=== PATIENT | male | born 1965 | race Caucasian/White ===

== ENCOUNTER 2017-03-17 19:53 | Inpatient (IN) | payer OTHER ==
[~2017-03-17] VITALS: Ht 170.2 cm; Wt 95.0 kg
[~2017-03-17 19:53] MED LIST: RAMIPRIL2.5 MG
[2017-03-17 21:15] LABS: microscopic required? NO
[2017-03-17 21:16] LABS: CALCIUM 8.2 mg/dL (8.5-10.1); CARBON DIOXIDE 22.3 mmol/L (21-32); CHLORIDE SERUM 100 mmol/L (98-107); GFR1 > 60 mL/min; GLUCOSE SERUM 133 mg/dL (74-106); POTASSIUM SERUM 3.9 mmol/L (3.5-5.1); SODIUM SERUM 138 mmol/L (136-145)
[2017-03-17 21:20] LABS: ALKALINE PHOSPHATASE 878 U/L (46-116); ALT/SGPT 54 U/L (16-63); AST/SGOT 67 U/L (15-37); BILIRUBIN TOTAL 1.3 mg/dL (0.20-1.00)
[2017-03-17 21:21] LABS: ALBUMIN 1.8 g/dL (3.4-5.0); TOTAL PROTEIN, SERUM 5.5 g/dL (6.4-8.2)
[2017-03-17 21:22] LABS: UA SPECIFIC GRAVITY 1.025 (1.005-1.035); urine erythrocyte NEGATIVE (NEGATIVE)
[2017-03-17 21:26] LABS: PLATELET COUNT 53 x10^3mcL (130-400); RED CELL DISTRIBUTION WIDTH 17.5 % (11.5-14.5)
[2017-03-17 21:31] LABS: CK-MB < 0.5 ng/mL (0-3.6); CREATINE KINASE 22 U/L (39-308)
[2017-03-17 21:53] LABS: BAND NEUTROPHIL 7 % (0-10); BASOPHIL 0 % (0-2); METAMYELOCTE 3 % (0-2); MONOCYTE 6 % (0-7); SEGMENTED NEUTROPHILS 80 % (37-75)
[2017-03-17 21:54] LABS: rbc morphology (normal/abnorm) ABNORMAL (NORMAL)
[2017-03-17 21:57] LABS: schistocyte (helmet cell) 1+; target cell (codocyte) 2+; tear drop cell (dacryocyte) 1+
[2017-03-17] MEDS ORDERED: INDOMETHACIN25 MG PO (22:12)
[2017-03-17] MEDS ORDERED: TRIUMEQ1 TAB PO (22:12)
[2017-03-17] MEDS ORDERED: BIAXIN FILMTAB500 MG PO (22:13)
[2017-03-17] MEDS ORDERED: FUROSEMIDE20 MG PO (22:13)
[2017-03-17] MEDS ORDERED: METOPROLOL SUCC25 M2 PO (22:16)
[2017-03-18] VITALS (19 sets, daily range): BP systolic 20–124; BP diastolic 49–78
[2017-03-18 00:26] LABS: CHOLESTEROL 301 mg/dL (<200); CHOLESTEROL/HDL RATIO 60.2; HDL CHOLESTEROL 5 mg/dL (40-60); MAGNESIUM 2.4 mg/dL (1.8-2.4); PHOSPHOROUS 3.8 mg/dL (2.5-4.9); TRIGLYCERIDES 525 mg/dL (<150)
[2017-03-18 00:30] LABS: FREE T4 1.29 ng/dL (0.76-1.46); FREE THYROXINE INDEX 2.2 ug/dL (1.4-4.5); T4(THYROXINE) 6.4 ug/dL (4.7-13.3)
[2017-03-18 01:40] LABS: T3 TOTAL 0.84 ng/mL
[2017-03-18 05:10] LABS: PLATELET COUNT 38 x10^3mcL (130-400); RED CELL DISTRIBUTION WIDTH 17.7 % (11.5-14.5)
[2017-03-18 05:20] LABS: ALKALINE PHOSPHATASE 829 U/L (46-116); ALT/SGPT 51 U/L (16-63); AST/SGOT 57 U/L (15-37); BILIRUBIN TOTAL 1.1 mg/dL (0.20-1.00); CALCIUM 7.7 mg/dL (8.5-10.1); CARBON DIOXIDE 20.5 mmol/L (21-32); CHLORIDE SERUM 104 mmol/L (98-107); CREATININE SERUM 0.9 mg/dL (0.7-1.3); GFR1 > 60 mL/min; GLUCOSE SERUM 149 mg/dL (74-106); SODIUM SERUM 139 mmol/L (136-145)
[2017-03-18 05:42] LABS: BAND NEUTROPHIL 3 % (0-10); METAMYELOCTE 1 % (0-2); MONOCYTE 8 % (0-7); SEGMENTED NEUTROPHILS 80 % (37-75)
[2017-03-18 05:47] LABS: ovalocyte/elliptocyte 1+; rbc morphology (normal/abnorm) ABNORMAL (NORMAL)
[2017-03-18 05:52] LABS: ALBUMIN 1.8 g/dL (3.4-5.0); TOTAL PROTEIN, SERUM 5.4 g/dL (6.4-8.2)
[2017-03-18 14:49] LABS: AMPHETAMINE QUAL UR NONE DETECTED (NEG <=1000)
[2017-03-19] VITALS (18 sets, daily range): BP systolic 92–116; BP diastolic 54–77; Ht 170.2 cm; Wt 95.0 kg
[2017-03-19 06:22] LABS: CALCIUM 7.9 mg/dL (8.5-10.1); CHLORIDE SERUM 102 mmol/L (98-107); CREATININE SERUM 0.8 mg/dL (0.7-1.3); GFR1 > 60 mL/min; GLUCOSE SERUM 198 mg/dL (74-106); MAGNESIUM 2.5 mg/dL (1.8-2.4); PHOSPHOROUS 3.4 mg/dL (2.5-4.9); POTASSIUM SERUM 4.1 mmol/L (3.5-5.1); SODIUM SERUM 151 mmol/L (136-145)
[2017-03-19 06:34] LABS: RED CELL DISTRIBUTION WIDTH 17.7 % (11.5-14.5)
[2017-03-19 06:35] LABS: PLATELET COUNT 44 x10^3mcL (130-400)
[2017-03-19 07:36] LABS: BAND NEUTROPHIL 4 % (0-10); BASOPHIL 0 % (0-2); METAMYELOCTE 1 % (0-2); MONOCYTE 8 % (0-7); SEGMENTED NEUTROPHILS 78 % (37-75)
[2017-03-19 07:38] LABS: ovalocyte/elliptocyte 1+; rbc morphology (normal/abnorm) ABNORMAL (NORMAL)
[2017-03-20] VITALS (11 sets, daily range): BP systolic 100–139; BP diastolic 62–75
[2017-03-20 05:14] LABS: PLATELET COUNT 46 x10^3mcL (130-400); RED CELL DISTRIBUTION WIDTH 17.6 % (11.5-14.5)
[2017-03-20 05:15] LABS: CALCIUM 7.4 mg/dL (8.5-10.1); CARBON DIOXIDE 23.7 mmol/L (21-32); CHLORIDE SERUM 106 mmol/L (98-107); CREATININE SERUM 0.7 mg/dL (0.7-1.3); GFR1 > 60 mL/min; GLUCOSE SERUM 178 mg/dL (74-106); MAGNESIUM 2.6 mg/dL (1.8-2.4); PHOSPHOROUS 3.1 mg/dL (2.5-4.9); POTASSIUM SERUM 4.4 mmol/L (3.5-5.1); SODIUM SERUM 139 mmol/L (136-145)
[2017-03-20 05:31] LABS: BAND NEUTROPHIL 0 % (0-10); BASOPHIL 0 % (0-2); MONOCYTE 4 % (0-7); SEGMENTED NEUTROPHILS 87 % (37-75)
[2017-03-20 05:34] LABS: PLATELET MORPHOLOGY PLATELETS DECREASED; rbc morphology (normal/abnorm) ABNORMAL (NORMAL)
[2017-03-21 03:05] VITALS: BP 101/67
[2017-03-21 05:31] LABS: RED CELL DISTRIBUTION WIDTH 17.8 % (11.5-14.5)
[2017-03-21 05:32] LABS: PLATELET COUNT 44 x10^3mcL (130-400)
[2017-03-21 05:36] LABS: CARBON DIOXIDE 24.5 mmol/L (21-32); CREATININE SERUM 0.7 mg/dL (0.7-1.3); GFR1 > 60 mL/min; GLUCOSE SERUM 134 mg/dL (74-106); MAGNESIUM 2.5 mg/dL (1.8-2.4); PHOSPHOROUS 3.6 mg/dL (2.5-4.9)
[2017-03-21 05:44] LABS: CHLORIDE SERUM 104 mmol/L (98-107); SODIUM SERUM 136 mmol/L (136-145)
[2017-03-21 05:47] LABS: BAND NEUTROPHIL 2 % (0-10); METAMYELOCTE 5 % (0-2); MONOCYTE 10 % (0-7); MYELOCYTE 2 % (0-2); SEGMENTED NEUTROPHILS 67 % (37-75)
[2017-03-21 05:49] LABS: rbc morphology (normal/abnorm) ABNORMAL (NORMAL)
[2017-03-21 08:32] VITALS: BP 107/68
[2017-03-21 14:08] VITALS: BP 123/72
[2017-03-21 16:15] VITALS: BP 104/64
[2017-03-21 22:18] VITALS: BP 97/61
[2017-03-22 06:29] VITALS: BP 91/58
[2017-03-22 06:34] LABS: CALCIUM 7.2 mg/dL (8.5-10.1); CARBON DIOXIDE 23.2 mmol/L (21-32); CHLORIDE SERUM 101 mmol/L (98-107); CREATININE SERUM 0.7 mg/dL (0.7-1.3); GFR1 > 60 mL/min; GLUCOSE SERUM 112 mg/dL (74-106); MAGNESIUM 2.1 mg/dL (1.8-2.4); PHOSPHOROUS 3.7 mg/dL (2.5-4.9); POTASSIUM SERUM 4.6 mmol/L (3.5-5.1); SODIUM SERUM 132 mmol/L (136-145)
[2017-03-22 06:39] LABS: RED CELL DISTRIBUTION WIDTH 17.6 % (11.5-14.5)
[2017-03-22 09:16] VITALS: BP 100/66
[2017-03-22 09:30] LABS: ATYPICAL LYMPH 2 %; BAND NEUTROPHIL 2 % (0-10); BASOPHIL 0 % (0-2); MONOCYTE 11 % (0-7); SEGMENTED NEUTROPHILS 81 % (37-75)
[2017-03-22 09:32] LABS: rbc morphology (normal/abnorm) ABNORMAL (NORMAL)
[2017-03-22 09:33] LABS: PLATELET MORPHOLOGY PLATELETS DECREASED
[2017-03-22 10:05] LABS: PLATELET COUNT 40 x10^3mcL (130-400)
[2017-03-22] MEDS ORDERED: LEVAQUIN750 MG PO (10:05)
[2017-03-22] MEDS ORDERED: LAC PO (10:11)
[2017-03-22 12:30] VITALS: BP 100/66
[2017-03-22] MEDS ORDERED: SULFATRIM 800-120 ML PO (12:54)
[2017-03-22 12:58] VITALS: BP 111/70
[2017-03-24] MEDS ORDERED: TRIUMEQ1 TAB PO (19:57)
[2017-03-24] MEDS ORDERED: METOPROLOL TART25 M1 PO ×2 (20:43→23:15)
[2017-03-24] MEDS ORDERED: TOPROL XL25 MG PO (23:08)
== END 2017-03-22 15:15 | disposition home or self-care (01) | DRG 974 ==
LOC: ED 19:53 → DU 23:34 → IC 23:34 → DU 03-18 01:07 → IC 03-18 02:24 → DU 03-21 14:05
PROVIDERS: Emergency Medicine; Family Medicine
PROC: 5A1945Z Respiratory Ventilation, 24-96 Consecutive Hours (ICD-10-PCS; principal; 2017-03-18)
PROC: 0BH17EZ Insertion of Endotracheal Airway into Trachea, Via Natural or Artificial Opening (ICD-10-PCS; 2017-03-18)
PROC: 5A09357 Assistance with Respiratory Ventilation, Less than 24 Consecutive Hours, Continuous Positive Airway Pressure (ICD-10-PCS; 2017-03-18)
DX: A41.9 Sepsis, unspecified organism (principal); B20 Human immunodeficiency virus [HIV] disease; N17.0 Acute kidney failure with tubular necrosis; R65.21 Severe sepsis with septic shock; J96.01 Acute respiratory failure with hypoxia; J69.0 Pneumonitis due to inhalation of food and vomit; C83.30 Diffuse large B-cell lymphoma, unspecified site; E87.0 Hyperosmolality and hypernatremia; E78.5 Hyperlipidemia, unspecified; I10 Essential (primary) hypertension; E83.51 Hypocalcemia; E02 Subclinical iodine-deficiency hypothyroidism; R13.10 Dysphagia, unspecified; G72.9 Myopathy, unspecified; Z79.899 Other long term (current) drug therapy
CPT/HCPCS: 36600; 82962; 83880; 84439; 87804; 97110-GP; J1940; J1956; J2060; J2543; J2704; J2920; J2930; J3490; J7030; Q0092; Q9967